=== PATIENT | female | born 1975 | race Caucasian/White ===

== ENCOUNTER 2017-04-17 12:22 | Day surgery (SDC) | payer BC ==
[2017-03-31 10:10] VITALS: BMI 29.5
[2017-04-17] MEDS ORDERED: PROPOFOL 20 ML ONE (14:07)
[2017-04-17] MEDS ORDERED: MIDAZOLAM HCL 2 MG/2 ML SINGLE DOSE VIAL ONE (14:07)
[2017-04-17] MEDS ORDERED: LIDOCAINE HCL/PF 2% SDV 5ML VIAL ONE (14:07)
--- NOTE | 2017-04-17 14:12 | HP ---
Past Medical History - Primary Care Physician PCP:: Eric Howard - Admission Chief Complaint: menometrorrhagia, submucos leipomyoma of uterus History of Present Illness: 42 yo f with hx of heavy irregular menses , sono showed submucos fibroid uterus , admitted for hysteroscopy D&C ,resection of fibroid with truclear device , rba discussed History Source: Patient Limitations to Obtaining History: No Limitations - Past Surgical History Hx Myomectomy: No Hx Transabdominal Cerclage: No - Advance Directives Advance Directives: Yes: Living Will - Smoking History Smoking history: Never smoked - Alcohol/Substance Use Hx Alcohol Use: Yes (social) - Social History Usual Living Arrangement: Yes: With Spouse History of Recent Travel: No Home Medications - Allergies Allergies/Adverse Reactions: Allergies Allergy/AdvReac Type Severity Reaction Status Date / Time No Known Allergies Allergy Verified 04/17/17 13:10 - Home Medications Home Medications: Ambulatory Orders NK [No Known Home Medication] 03/31/17 Review of Systems - Review of Systems Constitutional: reports: No Symptoms Eyes: reports: No Symptoms HENT: reports: No Symptoms Neck: reports: No Symptoms Cardiovascular: reports: No Symptoms Respiratory: reports: No Symptoms Gastrointestinal: reports: No Symptoms Genitourinary: reports: Vaginal Bleeding Breasts: reports: No Symptoms Reported Musculoskeletal: reports: No Symptoms Integumentary: reports: No Symptoms Neurological: reports: No Symptoms Endocrine: reports: No Symptoms Hematology/Lymphatic: reports: No Symptoms Psychiatric: reports: No Symptoms Physical Exam-[employer] Vital Signs: Vital Signs Temperature 98.3 F 04/17/17 12:46 Pulse Rate 68 04/17/17 12:46 Respiratory Rate 18 04/17/17 12:46 Blood Pressure 139/68 04/17/17 12:46 O2 Sat by Pulse Oximetry (%) 100 04/17/17 13:10 Constitutional: Yes: Well Nourished, No Distress, Calm Eyes: Yes: WNL, Conjunctiva Clear, EOM Intact HENT: Yes: WNL, Atraumatic, Normocephalic Neck: Yes: WNL, Supple, Trachea Midline Cardiovascular: Yes: WNL, Regular Rate and Rhythm Respiratory: Yes: WNL, Regular, CTA Bilaterally Gastrointestinal: Yes: WNL ...Rectal Exam: Yes: WNL Renal/: Yes: WNL Vaginal Exam: Yes: Normal Cervix: Yes: Normal Uterus: Yes: Anteverted (bulky) Adnexa: Not Palpable: Left, Right Breast(s): Yes: WNL Musculoskeletal: Yes: WNL Extremities: Yes: WNL Edema: No Integumentary: Yes: WNL Neurological: Yes: WNL, Alert, Oriented ...Motor Strength: WNL Psychiatric: Yes: WNL, Alert, Oriented Problem List - Problem (1) Menometrorrhagia Code(s): N92.1 - EXCESSIVE AND FREQUENT MENSTRUATION WITH IRREGULAR CYCLE (2) Menometrorrhagia Code(s): N92.1 - EXCESSIVE AND FREQUENT MENSTRUATION WITH IRREGULAR CYCLE (3) Fibroids, submucosal Code(s): D25.0 - SUBMUCOUS LEIOMYOMA OF UTERUS Assessment/Plan hysteroscopy, D&C , resection of submucos myoma, rba discussed
[2017-04-17] MEDS ORDERED: LACTATED RINGERS SOLUTION 1,000 ML IV SCH (14:15)
[2017-04-17] MEDS ORDERED: oxyCODONE HCL 5 MG TABLET PO PRN ×2 (14:15→15:25)
[2017-04-17] MEDS ORDERED: IBUPROFEN 800 MG/8 ML IJ IVPB PRN ×2 (14:15→15:25)
[2017-04-17] MEDS ORDERED: ONDANSETRON 4 MG/2 ML VIAL IVPUSH PRN ×2 (14:15→15:25)
[2017-04-17] MEDS ORDERED: DEXAMETHASONE SOD PHOSPHATE 4 MG/1 ML VIAL ONE (14:38)
[2017-04-17] MEDS ORDERED: IBUPROFEN 600 MG TABLET (FP) PO PRN (15:25)
[2017-04-17] MEDS ORDERED: ELECTROLYTE-148 SOLN 1,000 ML IV SCH (15:30)
[2017-04-17] MEDS ORDERED: METOPROLOL TARTRATE 5 MG/5 ML VIAL ONE (15:41)
[2017-04-17] MEDS ORDERED: METOPROLOL TARTRATE 5 MG/5 ML VIAL IVPUSH ONE (15:58)
--- NOTE | 2017-04-17 16:01 | PN ---
Progress Note (short form) - Note Progress Note: Called to PACU for EKG rhythm of bigeminy. Metoprolol 5mg IVP given immediately. Also gave lidocaine 100mg IV soon afterwards. Immediate reversion to NSR after lidocaine administration. 12 lead EKG obtained, to confirm NSR. Pt is a little anxious, which possibly precipitated the rhythm. Pt has no history of any cardiac issues, is young and has no other risk factors for cardiac disease. Will monitor in PACU and obtain cardiac consult should arianna recur.
[2017-04-17] MEDS ORDERED: hydrALAZINE HCL 20 MG/ML VIAL IVPUSH ONE (16:07)
[2017-04-17 16:37] VITALS: TEMP 97.9
[2017-04-17 18:59] VITALS: BP 137/75; PULSE 87
--- NOTE | 2017-04-18 13:05 | OP ---
DATE OF OPERATION: 04/17/2017 PREOPERATIVE DIAGNOSIS: Menometrorrhagia, rule out submucous leiomyoma. POSTOPERATIVE DIAGNOSIS: Menometrorrhagia, rule out submucous leiomyoma and endometrial polyp. No myoma was seen. PROCEDURE: Hysteroscopic polypectomy with TruClear and dilation and curettage. SURGEON: Eric Howard MD ANESTHESIA: General. ANESTHESIOLOGIST: Dr. Henry ESTIMATED BLOOD LOSS: 50 mL. DESCRIPTION OF PROCEDURE: The patient was taken to the operating room. Under adequate general anesthesia, examination under anesthesia revealed external genitalia to be normal. Vagina was normal. Cervix was clean, no lesion. Uterus was prominent and anteverted and approximately 10 weeks' size. Adnexa no masses were palpable. Then with a weighted speculum in the vagina, anterior lip of the cervix was grasped with a single-tooth tenaculum. Uterine cavity was sounded to 7 cm. Then hysteroscope was introduced and the cervical canal appeared to be normal. Endometrium was irregular and thickened with several small polyps approximately 1-2 cm each seen in the lower uterine segment. Both cornual regions were identified, and tubal ostia were visualized. No other abnormality was seen. There was no submucous myoma. Then with a TruClear device at a speed of 800 oscillation mode with the TruClear incisor, the polyps were removed, and the contents was suctioned. Resection time 1 minute 19 seconds. Total fluid volume 1140. There was 130 mL fluid deficit. The patient tolerated the procedure well and left the OR in good condition. Kalin [id number]
--- NOTE | 2017-04-21 09:33 | PATH ---
Surgical Pathology Report Patient Name: [facility]. Rec. #: [id number] /Age/Gender: 1975 (Age: 42) / F Account: [id number] Location: [facility] SURGICAL Taken: 04/17/2017 Received: 04/18/2017 Reported: 04/21/2017 Physicians: Eric Howard M.D. Specimen(s) Received A: ENDOMETRIAL CURETTINGS B: POLYP Clinical History Leiomyoma uterus submucosal/heavy menstruation Final Diagnosis A. ENDOMETRIUM, CURETTING: SECRETORY ENDOMETRIUM. NO ENDOMETRIAL HYPERPLASIA OR CARCINOMA IDENTIFIED. B. ENDOMETRIUM, POLYPECTOMY: SECRETORY ENDOMETRIUM WITH PROMINENT GLANDULAR DILATATION. NO ENDOMETRIAL HYPERPLASIA OR CARCINOMA IDENTIFIED. Electronically Signed Joseph Conroy M.D. Gross Description A. Received in formalin labeled "endometrial curettings," is a 3.0 x 2.3 x 0.3 cm aggregate of marcum-brown soft tissue fragments. The formalin is filtered and the specimen is entirely submitted in one cassette. B. Received in formalin labeled "polyp," is a 1.7 x 1.6 x 0.2 cm aggregate of marcum soft tissue fragments. The formalin is filtered and the specimen is entirely submitted in one cassette. /04/18/2017 saudi04/18/2017
--- NOTE | 2017-04-21 16:06 | EKG ---
Test Reason : Blood Pressure : / mmHG Vent. Rate : 067 BPM Atrial Rate : 067 BPM P-R Int : 164 ms QRS Dur : 084 ms QT Int : 394 ms P-R-T Axes : 064 046 039 degrees QTc Int : 416 ms POOR DATA QUALITY, INTERPRETATION MAY BE ADVERSELY AFFECTED NORMAL SINUS RHYTHM NORMAL ECG NO PREVIOUS ECGS AVAILABLE Confirmed by KIRILL HERNANDEZ MD ([id number]) on 04/21/2017 4:06:36 PM Referred By: Eric Howard Confirmed By:KIRILL HERNANDEZ MD
== END 2017-04-17 19:01 | disposition home or self-care (01) ==
LOC: JASU-SURG 12:22
PROVIDERS: ATTEND Obstetrics & Gynecology
PROC: 0UDB8ZX Extraction of Endometrium, Via Natural or Artificial Opening Endoscopic, Diagnostic (ICD-10-PCS; principal; 2017-04-17 14:00)
DX: N92.1 Excessive and frequent menstruation with irregular cycle (principal); N84.0 Polyp of corpus uteri
CPT/HCPCS: 84703; 88305-TC; 93005; 93010; 94760